=== PATIENT | female | born 2000 | race American Indian/Alaskan Native ===

== ENCOUNTER 2019-07-13 15:06 | Emergency (ER) | payer MEDICAID ==
--- NOTE | 2019-07-13 17:25 | Event Note ---
ED Screening Note ED Screening Note: states she noticed blood in the toliet cramping 19 weeks , goes to [facility] [address] [address] no pmhx no allergies to meds LNMP: 03/01/19 This initial assessment/diagnostic orders/clinical plan/treatment(s) is/are subject to change based on patients health status, clinical progression and re- assessment by fellow clinical providers in the ED. Further treatment and workup at subsequent clinical providers discretion. Patient/guardian urged not to elope from the ED as their condition may be serious if not clinically assessed and managed. Initial orders include: US, labs, UA
[2019-07-13 18:28] LABS: Bacteria,Urine 1+ /HPF (Negative); Bilirubin,Urine NEG (Negative); Blood,Urine NEG (Negative); Color,Urine Straw (Yellow); Mucus,Urine FEW /HPF; Protein,Urine <15 mg/dL mg/dL (Negative); Urobilinogen,Urine < 2.0 mg/dL (<2.0)
--- NOTE | 2019-07-13 19:00 | Ultrasound Report ---
US OB transvaginal, US OB >= 14 weeks Fetus INDICATION / CLINICAL INFORMATION: abd pain, bleeding, . COMPARISON: None available. FINDINGS: Single, viable intrauterine , currently in breech presentation. heart rate 148. Placenta is anterior and free of the cervical os. Amniotic fluid volume subjectively appears to be de creased. stomach, kidneys and bladder, diaphragm, heart and cord are identified. Cord insertion and 4 ch ambers in the heart are not well seen due to positioning. anatomy is grossly negative. Biparietal diameter 4.0 cm, 18 weeks 0 days. Head circumference 15.5 cm, 18 weeks 3 days. Abdominal circumference 11.3 cm, 17 weeks 1 day. Femur length 2.7 cm, 18 weeks 3 days. Estimated body weight 210 g Cervical length 3.5 cm. Fluid is demonstrated within the cervix. IMPRESSION: 1. Viable 18 week 0 day intrauterine . Amniotic fluid volume appears low, and the hear t is not well seen. Suggest follow-up exam in 5-7 days. Signer Name: Ralph Feldman MD Signed: 07/13/2019 6:56 PM Workstation Name: [id number] [email or web address]
[2019-07-13 19:07] LABS: Basophils % (Auto) 0.4 % (0.0-1.8); Eosinophils # (Auto) 0.2 K/mm3 (0.0-0.4); Eosinophils % (Auto) 1.9 % (0.0-4.3); Hematocrit 34.4 % (30.3-42.9); Lymphocytes % (Auto) 20.3 % (13.4-35.0); Mean Corpuscular HGB Conc 35 % (30-34); Mean Corpuscular Volume 89 fl (79-97); Monocytes # (Auto) 0.6 K/mm3 (0.0-0.8); Monocytes % (Auto) 5.5 % (0.0-7.3); Platelet Count 214 K/mm3 (140-440); Red Blood Count 3.87 M/mm3 (3.65-5.03); Red Cell Distribution Width 13.6 % (13.2-15.2)
--- NOTE | 2019-07-13 20:25 | Emergency Department Report ---
HPI - General Chief Complaint: Vaginal Bleeding Time Seen by Provider: 07/13/19 17:23 - HPI HPI: 18-year-old female presents to the emergency department with the complaint of having some questionable vaginal or rectal bleeding yesterday w hen she was wiping herself. She said that she had both a bowel movement and urinated at that time. She wiped front to back and saw some blood on the toilet paper and in the toilet. The patient has not had any bowel movement today but did urinate multiple times so far and has not seen any further blood. She is currently at about 19 weeks. With this she is . She follows with [facility]. She has not taken anything for her symptoms prior to presentation. ED Past Medical Hx - Past Medical History Previous Medical History?: No - Surgical History Past Surgical History?: No - Social History Smoking Status: Never Smoker Substance Use Type: None ED Review of Systems ROS: Stated complaint: 19WKS PREG/BLOOD/NO MOVEMENT Other details as noted in HPI Comment: All other systems reviewed and negative Constitutional: denies: chills, fever Gastrointestinal: other (questionable rectal bleeding). denies: abdominal pain, vomiting Genitourinary: hematuria (questionable) Musculoskeletal: denies: back pain, arthralgia Skin: denies: rash, lesions Neurological: denies: headache, weakness Physical Exam - Physical Exam Vital Signs: Vital Signs 07/13/19 07/13/19 15:44 17:25 Temperature 98.3 F 98.3 F Pulse Rate 86 86 Respiratory 18 18 Rate Blood Pressure 129/68 129/68 Blood Pressure 129/68 [Right] O2 Sat by Pulse 99 99 Oximetry Physical Exam: GENERAL: The patient is well-developed well-nourished. HEENT: Normocephalic. Atraumatic. Patient has moist mucous membranes. EYES: Extraocular motions are intact. NECK: Supple. Trachea is midline CHEST/LUNGS: Clear to auscultation. There is no respiratory distress noted. HEART/CARDIOVASCULAR: Regular. There is no tachycardia. ABDOMEN: Abdomen is soft, nontender. Patient has normal bowel sounds. There is no abdominal distention. SKIN: Skin is warm and dry. NEURO: The patient is awake, alert, and oriented. The patient is cooperative. Normal speech. MUSCULOSKELETAL: There is no tenderness or deformity. There is no evidence of acute injury. RECTAL: Deferred ED Course Vital Signs 07/13/19 07/13/19 15:44 17:25 Temperature 98.3 F 98.3 F Pulse Rate 86 86 Respiratory 18 18 Rate Blood Pressure 129/68 129/68 Blood Pressure 129/68 [Right] O2 Sat by Pulse 99 99 Oximetry - Consultations Consultation #1: 07/13/19 20:[address] Todd Gaines, the BUTTON MACHINE OPERATOR contract designer for [facility]. He listened to the presentation including the ultrasound finding of low amniotic fluid and feels that the patient is safe for discharge home but she can follow-up next w eklutna in the office. ED Medical Decision Making - Lab Data Result diagrams: 07/13/19 18:52 - Radiology Data Radiology results: report reviewed US OB transvaginal, US OB >= 14 weeks Fetus INDICATION / CLINICAL INFORMATION: abd pain, bleeding, . COMPARISON: None available. FINDINGS: Single, viable intrauterine , currently in breech presentation. heart rate 148. Placenta is anterior and free of the cervical os. Amniotic fluid volume subjectively appears to be decreased. stomach, kidneys and bladder, diaphragm, heart and cord are identified. Cord insertion and 4 chambers in the heart are not well seen due to positioning. anatomy is grossly negative. Biparietal diameter 4.0 cm, 18 weeks 0 days. Head circumference 15.5 cm, 18 weeks 3 days. Abdominal circumference 11.3 cm, 17 weeks 1 day. Femur length 2.7 cm, 18 weeks 3 days. Estimated body weight 210 g Cervical length 3.5 cm. Fluid is demonstrated within the cervix. IMPRESSION: 1. Viable 18 week 0 day intrauterine . Amniotic fluid volume appears low, and the heart is not well seen. Suggest follow-up exam in 5-7 days. - Medical Decision Making Patient presented with a complaint of some abdominal cramping and concern for some type of bleeding but the patient is unsure whether it is vaginal or rectal. It appears more consistent with rectal bleeding as the patient had it yesterday when she had both a bowel movement and urination, but did not have a bowel movement today and did not see any blood. Patient is currently 18 weeks . Her labs have been unremarkable. ultrasound showed viable 18 w eklutna uterine . It also shows low amniotic fluid. I spoke with the BUTTON MACHINE OPERATOR on-call for [facility] who says the patient is safe for discharge home and agrees with outpatient follow-up next week. The patient will return to the emergency Department with any worsening of her symptoms or any acute distress. - Differential Diagnosis threatened miscarriage, , hemorrhoids Critical Care Time: No Critical care attestation.: If time is entered above; I have spent that time in minutes in the direct care of this critically ill patient, excluding procedure time. ED Disposition Clinical Impression: Rectal bleeding Qualifiers: Weeks of gestation: 18 weeks Qualified Code(s): Z3A.18 - 18 weeks gestation of Disposition: DC- TO HOME OR SELFCARE Is pt being admited?: No Condition: Stable Instructions: (ED), Rectal Bleeding (ED) Additional Instructions: Please follow-up with your BUTTON MACHINE OPERATOR next week regarding your abdominal cramping and the ultrasound findings of low amniotic fluid. I have also given you a referral for a local fishing vessel operator, Dr. Nilesh Gaines, to follow up regarding the possible rectal bleeding. Return to the emergency Department with any worsening of your symptoms or any acute distress. Referrals: TAVIA GAINES MD [Staff Physician] - 2-3 Days [facility] [Provider Group] - 2-3 Days Time of Disposition: 20:40
[2019-07-13 20:52] VITALS: BP 124/70
== END 2019-07-13 20:52 | disposition home or self-care (01) ==
LOC: ED 15:06
DX: O26.891 Other specified pregnancy related conditions, first trimester (principal); K62.5 Hemorrhage of anus and rectum
CPT/HCPCS: 36415; 76805; 76817; 81001; 84702; 85025; 86900; 86901; 87086